=== PATIENT | female | born 1975 | race African-American/Black ===

== ENCOUNTER 2016-06-10 20:00 | Emergency (ER) | payer OTHER ==
[2016-06-10 20:22] VITALS: BMI 26.6
--- NOTE | 2016-06-10 20:48 | PDOC ---
History of Present Illness - General Chief Complaint: Vaginal Bleeding Stated Complaint: VAGINAL BLEEDING Time Seen by Provider: 06/10/16 20:09 History Source: Patient Past History - Past Medical History Allergies/Adverse Reactions: Allergies Allergy/AdvReac Type Severity Reaction Status Date / Time No Known Allergies Allergy Verified 06/10/16 20:19 Home Medications: Ambulatory Orders Rivaroxaban [Xarelto] 10 mg PO BID 06/10/16 - Psycho/Social/Smoking Cessation Hx Suicidal Ideation: No Smoking History: Never smoked Have you smoked in the past 12 months: No Information on smoking cessation initiated: No Hx Alcohol Use: No Drug/Substance Use Hx: No *Physical Exam - Vital Signs Last Vital Signs Temp Pulse Resp BP Pulse Ox 97.9 F 140 H 20 125/75 100 06/10/16 20:19 06/10/16 20:19 06/10/16 20:19 06/10/16 20:19 06/10/16 20:19 ED Treatment Course - LABORATORY CBC & Chemistry Diagram: 06/10/16 21:30 06/10/16 21:30 Progress Note - Progress Note Progress Note: 41-year-old female PMH of asthma and uterine fibroids from home presented to the emergency department complaining of heavy vaginal bleeding. Patient was recently diagnosed with right lower leg DVT and pulmonary embolus after experiencing pain in the right calf for 3-4 days. Patient denies any throbbing of burning in nature. Pain started at right proximal limb them progressive to right calf pain. 06/05/2016 to 06/07/2016: Seen at [facility], ([place]): RLL pain/ swelling but denied short of breath or chest pain. As per pt: Doppler to RLL showed positive for DVT. (acute DVT popliteal vein and trunk vein Spiral Cx CT : which shows bilat pulmonary embolus. Tx with sq Heparin BID x2d 06/07/2016: D/C on Xarelto 15mg BID She was informed to return to the emergency department for any heavy bleeding or shortness of breath. The day after she was discharged from the hospital, she started experiencing [id number] vaginal bleed. Last evening patient went through "24 pads" of vaginal bleeding with notable large blood clots causing some lightheadedness but denied n/v/f/c/d, headache, dizziness, palpitations, chest pains, shortness of breath, abdominal pains, flank pains or urinary symptoms.Pt is an active heavy smoker. Previous h/o: Apr 19, 2016: Seen at [facility] for Weakness/ Blood transfusion after D&C and has been taking medroxyprogesterone. Patient was advised to discontinue the medroxyprogesterone as it developed PE and DVT after initiating hormone therapy. Pt was to F/U with Dr. Angulo [phone] in 2 weeks Transvaginal ultrasound/preliminary report: Diffusely heterogeneous myometrium could represent adenomyomatosis or diffuse leiomyomatous infiltration. 0135hrs: Called science and operations officer residential solar consultant/ Dr. Alvarez/ Dr. Olivera says to transfer the patient/unable to care for this high risk condition 0142hrs:[facility] called/ Dr. Riojas environmental engineering aide accepts transfer 0158hrs: Spoke to [facility]. making arrangements to transfer to [facility] 0201hrs; Dr. Campoverde/[facility] ER accepted ER to ER transfer *DC/Admit/Observation/Transfer Diagnosis at time of Disposition: Anemia Qualifiers: Anemia type: unspecified type Qualified Code(s): D64.9 - Anemia, unspecified Pulmonary embolism Qualifiers: Pulmonary embolism type: other Chronicity: acute Acute cor pulmonale presence: without acute cor pulmonale Qualified Code(s): I26.99 - Other pulmonary embolism without acute cor pulmonale DVT (deep venous thrombosis) Qualifiers: DVT location: lower extremity Affected thrombotic vein of extremity: popliteal Laterality: right Chronicity: acute Qualified Code(s): I82.431 - Acute embolism and thrombosis of right popliteal vein - Discharge Dispostion Disposition: TRANSFER ACUTE CARE/OTHER HOSP Condition at time of disposition: Guarded Admit: Yes - Referrals - Transfer to Acute Care Facility Receiving Facility: [facility]. Accepting Physician:: Dr. Riojas/RD MANAGER
--- NOTE | 2016-06-10 20:49 | PDOC ---
*Physical Exam - Vital Signs Last Vital Signs Temp Pulse Resp BP Pulse Ox 97.9 F 140 H 20 125/75 100 06/10/16 20:19 06/10/16 20:19 06/10/16 20:19 06/10/16 20:19 06/10/16 20:19 ED Treatment Course - LABORATORY CBC & Chemistry Diagram: 06/10/16 21:30 06/10/16 21:30 Medical Decision Making - Medical Decision Making 06/10/16 20:48 Pt seen by the Advanced Practice Provider under my direct supervision Ancillary studies reviewed I agree with plan as outlined by the Advanced Practice Provider DAVIE Christie *DC/Admit/Observation/Transfer Diagnosis at time of Disposition: Anemia, Pulmonary embolism, DVT (deep venous thrombosis) - Discharge Dispostion Disposition: TRANSFER ACUTE CARE/OTHER HOSP Condition at time of disposition: Guarded - Referrals Referrals: STAFF,NOT ON [Primary Care Provider] -
[2016-06-10] MEDS ORDERED: SODIUM CHLORIDE 1,000 ML IV STA (20:51)
[2016-06-10 21:57] LABS: INR 2.18 (0.82-1.09); PROTHROMBIN TIME (PATIENT) 24.4 SEC (9.98-11.88)
[2016-06-10 22:24] LABS: BASOPHIL 0.9 % (0-2.0); EOSINOPHIL 0.5 % (0-4.5); MCH 23.7 pg (25.7-33.7); MCHC 31.9 g/dl (32.0-36.0); MEAN CELL VOLUME 74.4 fl (80-96); MEAN PLT VOLUME 8.8 fl (7.5-11.1); NEUTROPHILS 71.2 % (42.8-82.8); PLATELET COUNT 314 K/MM3 (134-434); RDW 27.6 % (11.6-15.6); WHITE BLOOD COUNT 7.7 K/mm3 (4.0-10.0)
[2016-06-10 22:51] LABS: ALBUMIN 3.2 g/dl (3.4-5.0); ALK PHOS 76 U/L (45-117); ANION GAP 11 (8-16); BILIRUBIN,TOTAL 0.4 mg/dL (0.2-1.0); CALCIUM 8.6 mg/dL (8.5-10.1); CO2 24 mmol/L (21-32); CREATININE 0.6 mg/dL (0.55-1.02); GLUCOSE,RANDOM 96 mg/dL (74-106); SGOT/AST 21 U/L (15-37); SGPT/ALT 18 U/L (12-78); TOT PROT 6.9 g/dl (6.4-8.2)
[2016-06-10 22:55] LABS: URINE APPEARANCE SLCLOUDY; URINE COLOR AMBER
[2016-06-10 22:56] LABS: URINE BILIRUBIN NEGATIVE (NEGATIVE); URINE BLOOD 3+ (NEGATIVE); URINE GLUCOSE (UA) NEGATIVE (NEGATIVE); URINE KETONE NEGATIVE (NEGATIVE); URINE LEUK ESTERASE NEGATIVE (NEGATIVE); URINE NITRITE NEGATIVE (NEGATIVE); URINE PROTEIN 2+ (NEGATIVE); URINE UROBILINOGEN NORMAL E.U./dl (0.2-1.0)
[2016-06-10 22:57] LABS: URINE MUCUS MODERATE; URINE RBC 4256 /hpf (0-3); URINE WBC 73 /hpf (3-5)
--- NOTE | 2016-06-10 23:14 | PN ---
<Winsome Ahumada - Last Filed: 06/10/16 23:13> Teaching Attending Note Name of Resident: Yohannes Saunders <Lefty Chang - Last Filed: 06/11/16 01:22> Teaching Attending Note ATTENDING PHYSICIAN STATEMENT I saw and evaluated the patient. I reviewed the resident's note and discussed the case with the resident. I agree with the resident's findings and plan as documented. SUBJECTIVE: 41-year-old female presented to the emergency department complaining of heavy vaginal bleeding. Patient was recently diagnosed with right lower leg DVT and pulmonary embolus after experiencing pain in the right calf for 3-4 days. The patient reported that, last evening she went through 24 pads secondary to her vaginal bleeding. She noted large blood clots causing some lightheadedness but denied nausea, vomiting, fever, constipation, diarrhea, headache, dizziness, palpitations, chest pains, shortness of breath, abdominal pains, flank pains or urinary symptoms. Past Medical History: Active heavy smoker, asthma, uterine fibroids OBJECTIVE: Vital Signs: Last Vital Signs Temp Pulse Resp BP Pulse Ox 98.4 F 109 H 16 140/93 100 06/11/16 00:25 06/11/16 00:25 06/11/16 00:25 06/11/16 00:25 06/11/16 00:25 GENERAL: Awake, alert, and fully oriented, in no acute distress HEENT: Atraumatic. PERRLA, EOMI. Moist mucosa. No JVD LUNGS: No distress, speaks full sentences, clear to auscultation bilaterally HEART: Regular rate and rhythm, normal S1 and S2, no murmurs, rubs or gallops, peripheral pulses normal and equal bilaterally. ABDOMEN: Soft, nontender, normoactive bowel sounds. No guarding, no rebound. No masses EXTREMITIES: Normal inspection, Normal range of motion, no edema. No clubbing or cyanosis. NEUROLOGICAL: Cranial nerves II through XII grossly intact. Normal speech, normal gait, no focal sensorimotor deficits SKIN: Warm, Dry, normal turgor, no rashes or lesions noted. Labs: CBCD WBC 7.7 K/mm3 (4.0-10.0) 06/10/16 21:30 RBC 2.53 M/mm3 (3.60-5.2) L 06/10/16 21:30 Hgb 6.0 GM/dL (10.7-15.3) L* 06/10/16 21:30 Hct 18.8 % (32.4-45.2) L 06/10/16 21:30 MCV 74.4 fl (80-96) L 06/10/16 21:30 MCHC 31.9 g/dl (32.0-36.0) L 06/10/16 21:30 RDW 27.6 % (11.6-15.6) H 06/10/16 21:30 Plt Count 314 K/MM3 (134-434) 06/10/16 21:30 MPV 8.8 fl (7.5-11.1) 06/10/16 21:30 CMP Sodium 137 mmol/L (136-145) 06/10/16 21:30 Potassium 3.7 mmol/L (3.5-5.1) 06/10/16 21:30 Chloride 102 mmol/L (98-107) 06/10/16 21:30 Carbon Dioxide 24 mmol/L (21-32) 06/10/16 21:30 Anion Gap 11 (8-16) 06/10/16 21:30 BUN 6 mg/dL (7-18) L 06/10/16 21:30 Creatinine 0.6 mg/dL (0.55-1.02) 06/10/16 21:30 Creat Clearance w eGFR > 60 (>60) 06/10/16 21:30 Calcium 8.6 mg/dL (8.5-10.1) 06/10/16 21:30 Total Bilirubin 0.4 mg/dL (0.2-1.0) 06/10/16 21:30 AST 21 U/L (15-37) 06/10/16 21:30 ALT 18 U/L (12-78) 06/10/16 21:30 Alkaline Phosphatase 76 U/L (45-117) 06/10/16 21:30 Total Protein 6.9 g/dl (6.4-8.2) 06/10/16 21:30 Albumin 3.2 g/dl (3.4-5.0) L 06/10/16 21:30 Imagin. Transabdominal pelvic ultrasound, endovaginal pelvic ultrasound and pelvic duplex. Impression: Diffusely heterogeneous myometrium could represent adenomyosis or diffuse leiomyomatosis. ASSESSMENT AND PLAN: Admit to __. Documentation prepared by Lefty Chang, acting as medical records library professor for Dr. Winsome Ahumada MD.
[2016-06-10] MEDS ORDERED: morphine CARPU-JECT 4 MG/1 ML DISP.SYRIN IVPUSH ONE (23:36)
[2016-06-10] MEDS ORDERED: morphine CARPU-JECT 4 MG/1 ML DISP.SYRIN ONE (23:48)
[2016-06-10 23:59] LABS: PLATELET ESTIMATE ADEQUATE (NORMAL)
[2016-06-11] LABS: ANISOCYTOSIS 3+; OVALOCYTES 1+; POIKILOCYTOSIS 1+; POLYCHROMASIA 1+; TARGET CELLS 1+
--- NOTE | 2016-06-11 01:07 | HP ---
CHIEF COMPLAINT: PCP: HISTORY OF PRESENT ILLNESS: ER course was notable for: (1) (2) (3) Recent Travel: PAST MEDICAL HISTORY: PAST SURGICAL HISTORY: Social History: Smoking: Alcohol: Drugs: Family History: Allergies No Known Allergies Allergy (Verified 06/10/16 20:19) HOME MEDICATIONS: Home Medications Medication Instructions Recorded Rivaroxaban [Xarelto] 10 mg PO BID 06/10/16 REVIEW OF SYSTEMS CONSTITUTIONAL: Absent: fever, chills, diaphoresis, generalized weakness, malaise, loss of appetite, weight change HEENT: Absent: rhinorrhea, nasal congestion, throat pain, throat swelling, difficulty swallowing, mouth swelling, ear pain, eye pain, visual changes CARDIOVASCULAR: Absent: chest pain, syncope, palpitations, irregular heart rate, lightheadedness , peripheral edema RESPIRATORY: Absent: cough, shortness of breath, dyspnea with exertion, orthopnea, wheezing, stridor, hemoptysis GASTROINTESTINAL: Absent: abdominal pain, abdominal distension, nausea, vomiting, diarrhea, constipation, melena, hematochezia GENITOURINARY: Absent: dysuria, frequency, urgency, hesitancy, hematuria, flank pain, genital pain MUSCULOSKELETAL: Absent: myalgia, arthralgia, joint swelling, back pain, neck pain SKIN: Absent: rash, itching, pallor HEMATOLOGIC/IMMUNOLOGIC: Absent: easy bleeding, easy bruising, lymphadenopathy, frequent infections ENDOCRINE: Absent: unexplained weight gain, unexplained weight loss, heat intolerance, cold intolerance NEUROLOGIC: Absent: headache, focal weakness or paresthesias, dizziness, unsteady gait, seizure, mental status changes, bladder or bowel incontinence PSYCHIATRIC: Absent: anxiety, depression, suicidal or homicidal ideation, hallucinations. PHYSICAL EXAMINATION Vital Signs - 24 hr 06/10/16 06/10/16 06/11/16 20:19 23:18 00:25 Temperature 97.9 F 98.4 F Pulse Rate 140 H Pulse Rate [ 118 H 109 H Left] Respiratory 20 20 16 Rate Blood Pressure 125/75 Blood Pressure 119/86 140/93 [Right Arm] O2 Sat by Pulse 100 100 100 Oximetry (%) GENERAL: Awake, alert, and fully oriented, in no acute distress. HEAD: Normal with no signs of trauma. EYES: Pupils equal, round and reactive to light, extraocular movements intact, sclera anicteric, conjunctiva clear. No lid lag. EARS, NOSE, THROAT: Ears normal, nares patent, oropharynx clear without exudates. Moist mucous membranes. NECK: Normal range of motion, supple without lymphadenopathy, JVD, or masses. LUNGS: Breath sounds equal, clear to auscultation bilaterally. No wheezes, and no crackles. No accessory muscle use. HEART: Regular rate and rhythm, normal S1 and S2 without murmur, rub or gallop. ABDOMEN: Soft, nontender, not distended, normoactive bowel sounds, no guarding, no rebound, no masses. No hepatomegaly or splenomegaly. MUSCULOSKELETAL: Normal range of motion at all joints. No bony deformities or tenderness. No CVA tenderness. UPPER EXTREMITIES: 2+ pulses, warm, well-perfused. No cyanosis. No clubbing. Cap refill <2 seconds. No peripheral edema. LOWER EXTREMITIES: 2+ pulses, warm, well-perfused. No calf tenderness. No peripheral edema. NEUROLOGICAL: Cranial nerves II-XII intact. Normal speech. Normal gait. PSYCHIATRIC: Cooperative. Good eye contact. Appropriate mood and affect. SKIN: Warm, dry, normal turgor, no rashes or lesions noted. Laboratory Results - last 24 hr 06/10/16 06/10/16 06/10/16 21:30 21:30 21:30 WBC 7.7 RBC 2.53 L Hgb 6.0 L* Hct 18.8 L MCV 74.4 L MCHC 31.9 L RDW 27.6 H Plt Count 314 MPV 8.8 Neutrophils % 71.2 Lymphocytes % 13.0 Monocytes % 14.4 H Eosinophils % 0.5 Basophils % 0.9 Platelet Estimate Adequate Platelet Comment Few giant plts Polychromasia 1+ Poikilocytosis 1+ Anisocytosis 3+ Macrocytosis 1+ Target Cells 1+ Ovalocytes 1+ Morphology Comment Slide scanned INR Sodium 137 Potassium 3.7 Chloride 102 Carbon Dioxide 24 Anion Gap 11 BUN 6 L Creatinine 0.6 Creat Clearance w eGFR > 60 Random Glucose 96 Calcium 8.6 Total Bilirubin 0.4 AST 21 ALT 18 Alkaline Phosphatase 76 Total Protein 6.9 Albumin 3.2 L Urine Color Edith Urine Appearance Slcloudy Urine pH 5.0 Ur Specific [place] 1.017 Urine Protein 2+ H Urine Glucose (UA) Negative Urine Ketones Negative Urine Blood 3+ H Urine Nitrite Negative Urine Bilirubin Negative Urine Urobilinogen Normal Ur Leukocyte Esterase Negative Urine RBC 4256 Urine WBC 73 Ur Epithelial Cells Rare Urine Mucus Moderate Urine HCG, Qual Blood Type Antibody Screen Crossmatch 06/10/16 06/10/16 06/10/16 21:30 21:30 21:31 WBC RBC Hgb Hct MCV MCHC RDW Plt Count MPV Neutrophils % Lymphocytes % Monocytes % Eosinophils % Basophils % Platelet Estimate Platelet Comment Polychromasia Poikilocytosis Anisocytosis Macrocytosis Target Cells Ovalocytes Morphology Comment INR 2.18 H Sodium Potassium Chloride Carbon Dioxide Anion Gap BUN Creatinine Creat Clearance w eGFR Random Glucose Calcium Total Bilirubin AST ALT Alkaline Phosphatase Total Protein Albumin Urine Color Urine Appearance Urine pH Ur Specific [place] Urine Protein Urine Glucose (UA) Urine Ketones Urine Blood Urine Nitrite Urine Bilirubin Urine Urobilinogen Ur Leukocyte Esterase Urine RBC Urine WBC Ur Epithelial Cells Urine Mucus Urine HCG, Qual Negative Blood Type A POSITIVE Antibody Screen Negative Crossmatch See Detail 06/10/16 22:40 WBC RBC Hgb Hct MCV MCHC RDW Plt Count MPV Neutrophils % Lymphocytes % Monocytes % Eosinophils % Basophils % Platelet Estimate Platelet Comment Polychromasia Poikilocytosis Anisocytosis Macrocytosis Target Cells Ovalocytes Morphology Comment INR Sodium Potassium Chloride Carbon Dioxide Anion Gap BUN Creatinine Creat Clearance w eGFR Random Glucose Calcium Total Bilirubin AST ALT Alkaline Phosphatase Total Protein Albumin Urine Color Urine Appearance Urine pH Ur Specific [place] Urine Protein Urine Glucose (UA) Urine Ketones Urine Blood Urine Nitrite Urine Bilirubin Urine Urobilinogen Ur Leukocyte Esterase Urine RBC Urine WBC Ur Epithelial Cells Urine Mucus Urine HCG, Qual Blood Type A POSITIVE Antibody Screen Crossmatch ASSESSMENT/PLAN:
[2016-06-11 02:45] VITALS: BP 115/80; PULSE 106; TEMP 98.3
--- NOTE | 2016-06-12 21:42 | EKG ---
Test Reason : Blood Pressure : / mmHG Vent. Rate : 119 BPM Atrial Rate : 119 BPM P-R Int : 130 ms QRS Dur : 080 ms QT Int : 330 ms P-R-T Axes : 050 060 032 degrees QTc Int : 464 ms SINUS TACHYCARDIA OTHERWISE NORMAL ECG NO PREVIOUS ECGS AVAILABLE Confirmed by HUMPHREY PRINGLE MD ([id number]) on 06/12/2016 9:41:49 PM Referred By: Confirmed By:HUMPHREY PRINGLE MD
== END 2016-06-11 02:40 | disposition short-term general hospital (02) ==
LOC: JER 20:00 → JERBED 06-11 00:43 → UNDOADMIN 06-11 00:43 → JER 06-11 02:40
DX: Z86.718 Personal history of other venous thrombosis and embolism (principal); Z86.711 Personal history of pulmonary embolism; Z79.01 Long term (current) use of anticoagulants; T38.5X5A Adverse effect of other estrogens and progestogens, initial encounter; J45.909 Unspecified asthma, uncomplicated; D25.9 Leiomyoma of uterus, unspecified; Y92.039 Unspecified place in apartment as the place of occurrence of the external cause
CPT/HCPCS: 36415; 36430; 71010-TC; 76830-TC; 80053; 81003; 81015; 84703; 85025; 85610; 86850; 86900; 86901; 86922; 93005; 93010; 99285-25; P9038; P9058

== ENCOUNTER 2018-02-26 12:05 | Inpatient (IN) | payer OTHER ==
[2018-02-26 12:54] VITALS: BMI 26.7
--- NOTE | 2018-02-26 14:05 | HP ---
CIWA Score Nausea/Vomitin Muscle Tremors: 2 Anxiety: 2 Agitation: 2 Paroxysmal Sweats: 1-Minimal Palms Moist Orientation: 0-Oriented Tacttile Disturbances: 1-Very Mild Itch/Numbness Auditory Disturbances: 1-Very Mild Visual Disturbances: 0-None Headache: 2-Mild CIWA-Ar Total Score: 13 - Admission Criteria [facility] Guidelines: Admission for Medically Managed Detox: Requires at least one of the followin. CIWA greater than 12 2. Seizures within the past 24 hours 3. Delirium tremens within the past 24 hours 4. Hallucinations within the past 24 hours 5. Acute intervention needed for co occurring medical disorder 6. Acute intervention needed for co occurring psychiatric disorder 7. Severe withdrawal that cannot be handled at a lower level of care (continued vomiting, continued diarrhea, abnormal vital signs) requiring intravenous medication and/or fluids 8. Patient presents the following: CIWA greater than 12 Admission Criteria Met: Admission criteria met Admission ROS BHS - HPI Chief Complaint: i need help to stop drinking alcohol and marijuana Allergies/Adverse Reactions: Allergies Allergy/AdvReac Type Severity Reaction Status Date / Time lactose Allergy Verified 02/27/18 08:12 History of Present Illness: this 42 years old female with alcohol dependence and marijuana dependence, seeking for detox,withdrawal symptom,last treatment in 2017 in [facility] nicotine dependence anxiety,depression,insomnia no significant period of sobriety Exam Limitations: No Limitations - Ebola screening Have you been sick,other than usual withdrawal symptoms: No - Review of Systems Constitutional: Loss of Appetite, Malaise, Night Sweats, Changes in sleep, Weakness EENT: reports: Nose Congestion Respiratory: reports: No Symptoms reported Cardiac: reports: Palpitations GI: reports: Nausea, Vomiting, Abdominal cramping : reports: No Symptoms Reported Musculoskeletal: reports: Back Pain, Muscle Pain Integumentary: reports: Dryness Neuro: reports: Headache, Tremors Endocrine: reports: No Symptoms Reported Hematology: reports: No Symptoms Reported Psychiatric: reports: No Sypmtoms Reported, Judgement Intact, Mood/Affect Appropiate, Orientated x3, Anxious, Depressed (insomnia) Patient History - Patient Medical History Hx Anemia: No Hx Asthma: No Hx Chronic Obstructive Pulmonary Disease (COPD): No Hx Cancer: No Hx Cardiac Disorders: No Hx Congestive Heart Failure: No Hx Hypertension: No Hx Hypercholesterolemia: No Hx Pacemaker: No HX Cerebrovascular Accident: No Hx Seizures: No Hx Dementia: No Hx Diabetes: No Hx Gastrointestinal Disorders: No Hx Liver Disease: No Hx Genitourinary Disorders: No Hx Sexually Transmitted Disorders: No Hx Renal Disease (ESRD): No Hx Thyroid Disease: No Hx Human Immunodeficiency Virus (HIV): No (last 06/25 negative) Hx Hepatitis C: No Hx Depression: Yes Hx Suicide Attempt: No Hx Bipolar Disorder: No Hx Schizophrenia: No Other Medical History: no sucidal,no homicidal,neck pain and back pain, endometriosis - Patient Surgical History Past Surgical History: No - PPD History Documented Results: Negative w/o proof Implanted On Prior [facility] Admission?: No PPD to be Administered?: Yes - Reproductive History Patient is a Female of Child Bearing Age (11 -55 yrs old): Yes Patient : No - Smoking Cessation Smoking history: Current every day smoker Have you smoked in the past 12 months: No Aproximately how many cigarettes per day: 10 Hx Chewing Tobacco Use: No Initiated information on smoking cessation: Yes 'Breaking Loose' booklet given: 02/26/18 - Substance & Tx. History Hx Alcohol Use: Yes Hx Substance Use: Yes Substance Use Type: Alcohol, Marijuana Hx Substance Use Treatment: Yes (last detox 2017 in [facility] not completed) - Substances Abused Alcohol-vodka/beer Route: Oral Frequency: Daily Amount used: 1 1/2 pts./4 (24 oz.) Age of first use: 30 Date of Last Use: 02/26/18 [place] Route: Smoking Frequency: Daily Amount used: $10 Age of first use: 13 Date of Last Use: 02/25/18 Family Disease History - Family Disease History Family History: Denies Admission Physical Exam [facility] - Vital Signs Vital Signs: Vital Signs - 24 hr 02/26/18 12:53 Temperature 98.0 F Pulse Rate 114 H Respiratory 18 Rate Blood Pressure 133/90 - Physical General Appearance: Yes: Moderate Distress, Tremorous, Irritable, Sweating, Anxious HEENTM: Yes: Normal ENT Inspection, LITO, Pharynx Normal Respiratory: Yes: Lungs Clear, Normal Breath Sounds, No Respiratory Distress Neck: Yes: Within Normal Limits, Supple, Trachea in good position Breast: Yes: Breast Exam Deferred Cardiology: Yes: Within Normal Limits, Regular Rhythm, Regular Rate, S1, S2 Abdominal: Yes: Within Normal Limits, Normal Bowel Sounds, Non Tender, Flat, Soft Genitourinary: Yes: Within Normal Limits Back: Yes: Within Normal Limits, Normal Inspection, Muscle Spasm Musculoskeletal: Yes: full range of Motion, Back pain, Muscle Pain Extremities: Yes: Within Normal Limits, Normal Range of Motion, Tremors Neurological: Yes: deputy juvenile officer II-XII NML intact, Fully Oriented, Alert, Motor Strength 5/5 Integumentary: Yes: Dry Lymphatic: Yes: Within Normal Limits - Diagnostic (1) Alcohol dependence with uncomplicated withdrawal Current Visit: Yes Status: Acute (2) Alcohol dependence with uncomplicated intoxication Current Visit: Yes Status: Acute (3) Endometriosis Current Visit: Yes Status: Acute (4) Low back pain Current Visit: Yes Status: Acute (5) Neck pain Current Visit: Yes Status: Acute (6) Herniated disc Current Visit: Yes Status: Acute (7) Nicotine dependence Current Visit: Yes Status: Acute (8) Insomnia secondary to depression with anxiety Current Visit: Yes Status: Acute (9) Cannabis dependence Current Visit: Yes Status: Acute Cleared for Admission [facility] - Detox or Rehab [facility] Level of Care: Medically Managed Detox Regimen/Protocol: Librium [facility] Breath Alcohol Content Breath Alcohol Content: 0.158 Urine Pregancy Test - Result Urine Test Results: Negative- NO Line Present Urine Drug Screen - Results Drug Screen Negative: No Urine Drug Screen Results: THC-Marijuana
[2018-02-26] MEDS ORDERED: IBUPROFEN 400 MG TABLET (FP) PO PRN ×2 (14:58→15:00)
[2018-02-26] MEDS ORDERED: LOPERAMIDE HCL 2 MG CAPSULE PO PRN (14:58)
[2018-02-26] MEDS ORDERED: P-EPHED 60MG/TRIPROLIDI 2.5MG TABLET PO PRN (14:58)
[2018-02-26] MEDS ORDERED: MAGNESIUM HYDROX 2400MG/30ML ORAL SUSPENSION 30 ML CUP PO PRN (14:58)
[2018-02-26] MEDS ORDERED: NICOTINE POLACRILEX 2 MG GUM BUC PRN (14:58)
[2018-02-26] MEDS ORDERED: guaiFENesin/D-METHORPHAN HB 10 ML UNIT-DOSE CUPS PO PRN (14:58)
[2018-02-26] MEDS ORDERED: MAG HYDROX/AL HYDROX/SIMETH 30 ML UNIT-DOSE CUP PO PRN (14:58)
[2018-02-26] MEDS ORDERED: ACETAMINOPHEN 325 MG TABLET (FP) PO PRN (14:58)
[2018-02-26] MEDS ORDERED: chlordiazePOXIDE HCL 25 MG CAPSULE PO PRN (14:58)
[2018-02-26] MEDS ORDERED: hydrOXYzine PAMOATE 50 MG CAPSULE (FP) PO PRN (14:58)
[2018-02-26] MEDS ORDERED: MENTHOL/PHENOL 1 EACH UD MM PRN (14:58)
[2018-02-26] MEDS ORDERED: MAGNESIUM CITRATE 300 ML BOTTLE PO PRN (14:58)
[2018-02-26] MEDS ORDERED: ALBUTEROL SO4 8 GM HFA INHALER IH PRN (15:00)
[2018-02-26] MEDS: chlordiazePOXIDE HCL 25 MG CAPSULE PO SCH ×2 (18:05→22:30)
[2018-02-26] MEDS: NICOTINE 21 MG/24 HOURS TOPICAL PATCH TD SCH (18:09)
[2018-02-26] MEDS ORDERED: MELATONIN 5 MG TABLETS PO PRN (22:00)
[2018-02-26] MEDS: THIAMINE HCL 100 MG TABLET (FP) PO SCH (22:31)
[2018-02-27 03:05] LABS: URINE APPEARANCE CLEAR; URINE BILIRUBIN NEGATIVE (<2.0 mg/dL); URINE COLOR YELLOW; URINE GLUCOSE (UA) NEGATIVE (NEGATIVE); URINE KETONE TRACE (NEGATIVE); URINE LEUK ESTERASE TRACE (NEGATIVE); URINE NITRITE NEGATIVE (NEGATIVE); URINE PROTEIN NEGATIVE (NEGATIVE); URINE UROBILINOGEN NEGATIVE mg/dL (0.2-1.0)
[2018-02-27 03:13] LABS: EPI CELLS RARE /HPF (FEW); URINE BACTERIA FEW /hpf (NONE SEEN); URINE MUCUS MODERATE
[2018-02-27] MEDS: chlordiazePOXIDE HCL 25 MG CAPSULE PO SCH (06:39)
[2018-02-27 10:03] LABS: HEMATOCRIT 37.2 % (32.4-45.2); HEMOGLOBIN 11.5 GM/dL (10.7-15.3); MCH 23.7 pg (25.7-33.7); MCHC 30.8 g/dl (32.0-36.0); MEAN CELL VOLUME 77.2 fl (80-96); MEAN PLT VOLUME 9.7 fl (7.5-11.1); PLATELET COUNT 261 K/MM3 (134-434); RBC 4.82 M/mm3 (3.60-5.2); RDW 20.9 % (11.6-15.6); WHITE BLOOD COUNT 5.2 K/mm3 (4.0-10.0)
[2018-02-27] MEDS ORDERED: diazePAM 5 MG TABLET PO PRN (10:20)
[2018-02-27 10:32] LABS: ALBUMIN 3.5 g/dl (3.4-5.0); ALK PHOS 80 U/L (45-117); ANION GAP 12 MMOL/L (8-16); BILIRUBIN,TOTAL 1.2 mg/dL (0.2-1); BLOOD UREA NITROGEN 7 mg/dL (7-18); CALCIUM 9.2 mg/dL (8.5-10.1); CHLORIDE 101 mmol/L (98-107); CO2 28 mmol/L (21-32); CREATININE 0.6 mg/dL (0.55-1.3); GLUCOSE,RANDOM 57 mg/dL (74-106); POTASSIUM 3.9 mmol/L (3.5-5.1); SGOT/AST 80 U/L (15-37); SGPT/ALT 78 U/L (13-61); SODIUM 142 mmol/L (136-145); TOT PROT 7.2 g/dl (6.4-8.2)
--- NOTE | 2018-02-27 10:34 | EKG ---
Test Reason : Blood Pressure : / mmHG Vent. Rate : 107 BPM Atrial Rate : 107 BPM P-R Int : 136 ms QRS Dur : 084 ms QT Int : 368 ms P-R-T Axes : 056 078 046 degrees QTc Int : 491 ms SINUS TACHYCARDIA OTHERWISE NORMAL ECG WHEN COMPARED WITH ECG OF 10-JUN-2016 23:11, NO SIGNIFICANT CHANGE WAS FOUND Confirmed by Mingo Lane MD ([id number]) on 02/27/2018 10:33:59 AM Referred By: Jacquelyn Melgoza Confirmed By:Mingo Lane MD
[2018-02-27] MEDS: NICOTINE 21 MG/24 HOURS TOPICAL PATCH TD SCH (10:56)
[2018-02-27] MEDS: PRENATAL VITAMINS W/ FOLIC ACID TABLET (FP) PO SCH (10:56)
[2018-02-27] MEDS: LIDOCAINE 5% TOPICAL PATCH TP SCH (10:56)
--- NOTE | 2018-02-27 11:32 | PN ---
[facility] CIWA - CIWA Score Nausea/Vomitin-Mild Nausea/No Vomiting Muscle Tremors: 3 Anxiety: 3 Agitation: 3 Paroxysmal Sweats: 3 Orientation: 0-Oriented Tacttile Disturbances: 0-None Auditory Disturbances: 0-None Visual Disturbances: 0-None Headache: 0-None Present CIWA-Ar Total Score: 13 S Progress Note (SOAP) Subjective: irritable agitation interrupted sleep body aches sweats restless I need my regimen switched to another detox regimen because the librium makes me nauseous. Objective: 02/27/18 11:35 Vital Signs Temperature 98.2 F 02/27/18 09:45 Pulse Rate 107 H 02/27/18 09:45 Respiratory Rate 18 02/27/18 09:45 Blood Pressure 119/84 02/27/18 09:45 O2 Sat by Pulse Oximetry (%) Laboratory Tests 02/26/18 02/27/18 02/27/18 23:30 07:00 07:00 WBC 5.2 RBC 4.82 Hgb 11.5 Hct 37.2 D MCV 77.2 L MCH 23.7 L MCHC 30.8 L RDW 20.9 H Plt Count 261 MPV 9.7 D Sodium 142 Potassium 3.9 Chloride 101 Carbon Dioxide 28 Anion Gap 12 BUN 7 Creatinine 0.6 Creat Clearance w eGFR > 60 Random Glucose 57 L Calcium 9.2 Total Bilirubin 1.2 H AST 80 H ALT 78 H Alkaline Phosphatase 80 Total Protein 7.2 Albumin 3.5 Urine Color Yellow Urine Appearance Clear Urine pH 6.0 Ur Specific [place] 1.006 L Urine Protein Negative Urine Glucose (UA) Negative Urine Ketones Trace H Urine Blood 2+ H Urine Nitrite Negative Urine Bilirubin Negative Urine Urobilinogen Negative Ur Leukocyte Esterase Trace Urine WBC (Auto) 2 Urine RBC (Auto) 1 Ur Epithelial Cells Rare Urine Bacteria Few Urine Mucus Moderate ast/alt slightly elevated; tylenol d/c aaox3 ambulating no acute distress librium switched to valium Assessment: 02/27/18 11:36 withdrawal sx Plan: continue detox with valium increase fluids
--- NOTE | 2018-02-27 14:19 | CONSULT ---
[facility] Psychiatric Consult - Data Date of interview: 02/27/18 Admission source: [facility] Identifying data: First admission to [facility] for this 42 y/o AA female seeking detoxification treatment, on , for alcohol and cannabis dependence. Patient is single, no children, domiciled and currently employed. Substance Abuse History: Conirmed by the patient in this interview. Details in current [facility] report : Smoking history: Current every day smoker. Have you smoked in the past 12 months: No. Aproximately how many cigarettes per day: 10. Hx Chewing Tobacco Use: No. Initiated information on smoking cessation: Yes. 'Breaking Loose' booklet given: 02/26/18. - Substance & Tx. History. Hx Alcohol Use: Yes. Hx Substance Use: Yes. Substance Use Type: Alcohol, Marijuana. Hx Substance Use Treatment: Yes (last detox 2016 in [facility] not completed). - Substances Abused. Alcohol-vodka/beer. Route: Oral. Frequency: Daily. Amount used: 1 1/2 pts./4 (24 oz.). Age of first use: 30. Date of Last Use: 02/26/18. [place]. Route: Smoking. Frequency: Daily. Amount used: $10. Age of first use: 13. Date of Last Use: 02/25/18 Medical History: Anemia, chronic lumbar pain, history of pulmonary embolism, bronchial asthma and endometriosis. Psychiatric History: Patient denies. Physical/Sexual Abuse/Trauma History: Patient denies. Additional Comment: Urine Drug Screen Results: THC-Marijuana. Noted. Mental Status Exam - Mental Status Exam Alert and Oriented to: Time, Place, Person Cognitive Function: Good Patient Appearance: Well Groomed Mood: Hopeful, Euthymic Affect: Appropriate, Normal Range Patient Behavior: Appropriate, Cooperative Speech Pattern: Clear Voice Loudness: Normal Thought Process: Intact, Goal Oriented Thought Disorder: Not Present Hallucinations: Denies Suicidal Ideation: Denies Sleep: Fair Appetite: Good Muscle strength/Tone: Normal Gait/Station: Normal Psychiatric Findings - Problem List ([place] 1, 2,3) (1) Alcohol dependence with uncomplicated intoxication Current Visit: Yes Status: Acute (2) Cannabis dependence Current Visit: Yes Status: Acute (3) Nicotine dependence Current Visit: Yes Status: Acute Qualifiers: Nicotine product type: cigarettes Substance use status: uncomplicated Qualified Code(s): F17.210 - Nicotine dependence, cigarettes, uncomplicated (4) Insomnia Current Visit: Yes Status: Chronic - Initial Treatment Plan Initial Treatment Plan: Psychoeducation. Sleep hygiene. Detoxification. AA meetings. Patient is made aware of the currently FDA-approved measures for relapse prevention of ETOH (naltrexone). Educated about the benefits of 12 step self help groups + psychotherapy. Patient declines to take hypnotic medications. Observation.
[2018-02-27] MEDS: diazePAM 5 MG TABLET PO SCH ×2 (15:27→22:34)
[2018-02-27] MEDS ORDERED: chlordiazePOXIDE HCL 25 MG CAPSULE PO SCH (17:00)
[2018-02-27] MEDS: LIDOCAINE PATCH REMOVAL MC SCH (22:34)
[2018-02-27] MEDS: THIAMINE HCL 100 MG TABLET (FP) PO SCH (22:36)
[2018-02-28] MEDS: diazePAM 5 MG TABLET PO SCH ×3 (06:50→22:25)
[2018-02-28 08:21] VITALS: TEMP 97.7
[2018-02-28] MEDS: PRENATAL VITAMINS W/ FOLIC ACID TABLET (FP) PO SCH (10:44)
[2018-02-28] MEDS: LIDOCAINE 5% TOPICAL PATCH TP SCH (10:44)
[2018-02-28] MEDS: NICOTINE 21 MG/24 HOURS TOPICAL PATCH TD SCH (10:44)
--- NOTE | 2018-02-28 11:00 | PN ---
[facility] CIWA - CIWA Score Nausea/Vomitin-No Nausea/No Vomiting Muscle Tremors: 3 Anxiety: 4-Mod. Anxious/Guarded Agitation: 4-Moderately Restless Paroxysmal Sweats: 2 Orientation: 0-Oriented Tacttile Disturbances: 0-None Auditory Disturbances: 0-None Visual Disturbances: 0-None Headache: 0-None Present CIWA-Ar Total Score: 13 [facility] Progress Note (SOAP) Subjective: irritable agitation sweats interrupted sleep Objective: 02/28/18 10:59 Vital Signs Temperature 97.7 F 02/28/18 08:20 Pulse Rate 111 H 02/28/18 08:20 Respiratory Rate 20 02/28/18 08:20 Blood Pressure 146/87 02/28/18 08:20 O2 Sat by Pulse Oximetry (%) Laboratory Tests 02/26/18 02/27/18 02/27/18 23:30 07:00 07:00 WBC 5.2 RBC 4.82 Hgb 11.5 Hct 37.2 D MCV 77.2 L MCH 23.7 L MCHC 30.8 L RDW 20.9 H Plt Count 261 MPV 9.7 D Sodium 142 Potassium 3.9 Chloride 101 Carbon Dioxide 28 Anion Gap 12 BUN 7 Creatinine 0.6 Creat Clearance w eGFR > 60 Random Glucose 57 L Calcium 9.2 Total Bilirubin 1.2 H AST 80 H ALT 78 H Alkaline Phosphatase 80 Total Protein 7.2 Albumin 3.5 Urine Color Yellow Urine Appearance Clear Urine pH 6.0 Ur Specific [place] 1.006 L Urine Protein Negative Urine Glucose (UA) Negative Urine Ketones Trace H Urine Blood 2+ H Urine Nitrite Negative Urine Bilirubin Negative Urine Urobilinogen Negative Ur Leukocyte Esterase Trace Urine WBC (Auto) 2 Urine RBC (Auto) 1 Ur Epithelial Cells Rare Urine Bacteria Few Urine Mucus Moderate RPR Titer 02/27/18 07:00 WBC RBC Hgb Hct MCV MCH MCHC RDW Plt Count MPV Sodium Potassium Chloride Carbon Dioxide Anion Gap BUN Creatinine Creat Clearance w eGFR Random Glucose Calcium Total Bilirubin AST ALT Alkaline Phosphatase Total Protein Albumin Urine Color Urine Appearance Urine pH Ur Specific [place] Urine Protein Urine Glucose (UA) Urine Ketones Urine Blood Urine Nitrite Urine Bilirubin Urine Urobilinogen Ur Leukocyte Esterase Urine WBC (Auto) Urine RBC (Auto) Ur Epithelial Cells Urine Bacteria Urine Mucus RPR Titer Nonreactive aaox3 ambulating no acute distress tylenol d/c Assessment: 02/28/18 10:59 withdrawal sx Plan: continue detox increase fluids
[2018-02-28] MEDS ORDERED: chlordiazePOXIDE 5 MG CAPSULE PO SCH (17:00)
[2018-02-28] MEDS: THIAMINE HCL 100 MG TABLET (FP) PO SCH (22:24)
[2018-02-28] MEDS: LIDOCAINE PATCH REMOVAL MC SCH (23:05)
[2018-03-01 06:18] VITALS: BP 92/61; PULSE 95
--- NOTE | 2018-03-01 08:45 | PN ---
[facility] Progress Note Note: pt was refusing to get her vitals taken, pt was refusing to adhere to rules of the unit and didnt want to continue getting her detox medication. pt states she didn't need to continue to be here for detox and signed out AMA.
--- NOTE | 2018-03-01 08:49 | DS ---
[facility] Detox Discharge Summary Admission Date: 02/26/18 - History Present History: Alcohol Dependence, Cannabis Dependence - Physical Exam Results Vital Signs: Vital Signs Temperature 97.7 F 02/28/18 08:20 Pulse Rate 95 H 03/01/18 06:00 Respiratory Rate 18 03/01/18 06:00 Blood Pressure 92/61 03/01/18 06:00 O2 Sat by Pulse Oximetry (%) - Medication Discharge Medications: Ambulatory Orders Albuterol Sulfate Inhaler - [Ventolin Hfa Inhaler -] 2 inh PO Q4H PRN 02/26/18 Ibuprofen [Motrin -] 800 mg PO QID PRN 02/26/18 - Diagnosis (1) Alcohol dependence with uncomplicated intoxication Current Visit: Yes Status: Chronic (2) Cannabis dependence Current Visit: Yes Status: Chronic (3) Endometriosis Current Visit: No Status: Chronic (4) Herniated disc Current Visit: Yes Status: Acute (5) Insomnia secondary to depression with anxiety Current Visit: Yes Status: Acute (6) Low back pain Current Visit: Yes Status: Chronic Qualifiers: Chronicity: chronic Back pain laterality: unspecified (7) Nicotine dependence Current Visit: Yes Status: Chronic Qualifiers: Nicotine product type: cigarettes Substance use status: uncomplicated Qualified Code(s): F17.210 - Nicotine dependence, cigarettes, uncomplicated (8) DVT (deep venous thrombosis) Current Visit: No Status: Acute Qualifiers: DVT location: lower extremity Affected thrombotic vein of extremity: popliteal Chronicity: acute Laterality: right Qualified Code(s): I82.431 - Acute embolism and thrombosis of right popliteal vein (9) Pulmonary embolism Current Visit: No Status: Acute Qualifiers: Pulmonary embolism type: other Chronicity: acute Acute cor pulmonale presence: without acute cor pulmonale Qualified Code(s): I26.99 - Other pulmonary embolism without acute cor pulmonale - AMA Did Patient Leave Against Medical Advice: Yes (going home. pt is getting p/u by her mother. )
[2018-03-01] MEDS ORDERED: diazePAM 5 MG TABLET PO SCH (10:00)
[2018-03-01] MEDS ORDERED: chlordiazePOXIDE HCL 10 MG CAPSULE PO SCH (17:00)
[2018-03-03] MEDS ORDERED: diazePAM 5 MG TABLET PO SCH (10:00)
== END 2018-03-01 08:51 | disposition left against medical advice (07) | DRG 770 ==
LOC: YASAS 12:05 → Y6N 15:12
PROVIDERS: ADMIT Neuromusculoskeletal Medicine & OMM; ATTEND Neuromusculoskeletal Medicine & OMM
PROC: HZ2ZZZZ Detoxification Services for Substance Abuse Treatment (ICD-10-PCS; principal; 2018-02-26)
DX: F10.230 Alcohol dependence with withdrawal, uncomplicated (principal); F12.20 Cannabis dependence, uncomplicated; F17.210 Nicotine dependence, cigarettes, uncomplicated; F51.05 Insomnia due to other mental disorder; G47.00 Insomnia, unspecified; N80.9 Endometriosis, unspecified; M54.5 Low back pain; M54.2 Cervicalgia; D64.9 Anemia, unspecified; Z86.69 Personal history of other diseases of the nervous system and sense organs; Z86.718 Personal history of other venous thrombosis and embolism; Z86.711 Personal history of pulmonary embolism
CPT/HCPCS: 36415; 80053; 81003; 81015; 85027; 86593; 93005; 93010